=== PATIENT | male | born 1950 | race Hispanic/Latino ===

== ENCOUNTER 2018-08-18 06:41 | Day surgery (SDC) | payer MEDICARE ==
[2018-08-12 09:09] VITALS: BMI 30.4
[2018-08-18] MEDS ORDERED: Propofol 10 mg/ml Inj (20 ML) ONE (07:48)
[2018-08-18] MEDS ORDERED: Lidocaine 1% Inj (20ml) ONE (07:48)
[2018-08-18] MEDS ORDERED: Etomidate 20 mg/10ml Inj IV ONE (07:48)
[2018-08-18] MEDS ORDERED: Sodium Chloride 0.9% 1,000 ML IV SCH (08:45)
[2018-08-18 09:38] VITALS: BP 140/77; RESP 18; TEMP 98.5
[2018-08-18 09:49] VITALS: PULSE 57; O2SAT 99
== END 2018-08-18 10:28 | disposition home or self-care (01) ==
LOC: ENDO 06:41
PROVIDERS: ATTEND Specialist
DX: K20.9 Esophagitis, unspecified (principal); K31.7 Polyp of stomach and duodenum; K29.50 Unspecified chronic gastritis without bleeding; K31.89 Other diseases of stomach and duodenum; I10 Essential (primary) hypertension; N40.0 Benign prostatic hyperplasia without lower urinary tract symptoms; G40.909 Epilepsy, unspecified, not intractable, without status epilepticus
CPT/HCPCS: 43239; 88305; 88312; 88342; J2704; J7030; J7040